=== PATIENT | female | born 2000 | race Caucasian/White ===

== ENCOUNTER 2025-05-31 17:12 | Emergency (ER) | payer MEDICAID, SELFPAY ==
[2025-05-31 17:13] VITALS: BP 114/81; PULSE 85; RESP 16; TEMP 36.8; O2SAT 99; BMI 18.9
--- NOTE | 2025-05-31 18:59 | EX.ED.DYSGE1 ---
HPI History of Present Illness Chief Complaint: Cold Sx Detail of Chief Complaint: Cold symptoms Informant: patient Narrative Narrative: Patient presents with cold symptoms that started 3 days ago. She complains of bodyaches as well as cough and congestion. She thinks that she might have a sinus infection. There was 1 sick contact at work but was better after a day or 2. Patient coughing up some yellow phlegm at times. No fever. No sore throat. Denies headache. PFSH PFSH Home Medications ?Medication ?Instructions ?Recorded ?Last Taken ?Type benzonatate 200 mg capsule 200 mg PO TID PRN cough #14 caps 05/31/25 Unknown Rx Allergy/AdvReac Type Severity Reaction Status Date / Time No Known Allergies Allergy Verified 05/31/25 17:15 Social History Smoking Status: Never smoker ROS ROS ED Review of Systems ROS Unobtainable: other Constitutional Constitutional ED: Reports lethargy; Denies chills, fever(s), sweats or weight loss Eyes Eyes: Denies blurry vision, change in vision or diplopia ENT ENT ED: Denies rhinorrhea or sore throat Cardiovascular Cardiovascular: Denies chest pain, orthopnea or racing heartbeat Respiratory/Chest Respiratory/Chest: Reports cough; Denies dyspnea, dyspnea on exertion, orthopnea or sputum Gastrointestinal Gastrointestinal: Denies abdominal pain, diarrhea, nausea or vomiting Genitourinary Genitourinary ED: Denies dysuria, hematuria or urinary frequency Musculoskeletal Musculoskeletal: Reports myalgias; Denies arthralgias, back pain or neck pain Integumentary Denies abscess, Abrasions or rash Neurologic Neurologic: Denies headache(s) or weakness Psychiatric Psychiatric: Denies anxiety, depression or suicidal thoughts Endocrine Endocrinology: Denies polydipsia, polyphagia or polyuria Hematologic/Lymphatic Hematologic/Lymphatic: Denies easy bleeding, easy bruising or lymphadenopathy Allergic/Immunologic Allergic/Immunologic ED: Denies mouth swelling, tongue swelling or urticaria EXAM Physical Exam Const Vital Signs: 05/31/25 17:13 05/31/25 17:13 Temperature 98.2 F Temperature Source Oral Pulse Rate 85 Respiratory Rate 16 Respiratory Effort Normal Non-Labored Respiratory Pattern Normal Blood Pressure 114/81 H Blood Pressure Mean 92 Pulse Ox 99 Oxygen Delivery Method Room Air Positive well nourished and well developed General Appearance ED: well developed and NAD HEENT Reports TM's clear and moist mucous membranes HEENT Narrative: No tenderness over the sinuses maxillary or frontal. Patient does have some nasal congestion with slightly edematous turbinates but no significant purulent discharge. Pharynx not erythematous. Uvula midline. No trismus. No anterior or posterior cervical lymphadenopathy. normocephalic and atraumatic; Negative for trauma or tenderness Tympanic Membrane ED: Yes TM's clear Eyes PERRL and EOMs intact bilaterally General Eye ED: Negative for pale conjunctiva or scleral icterus Neck no lymphadenopathy, supple and no JVD General: Negative for tenderness Chest Wall inspection of chest normal and palpation of chest normal Chest: Negative for tenderness Resp normal respiratory effort and clear to auscultation bilaterally Effort and Inspection: Negative for respiratory distress or pain with movement Auscultation: Negative for rhonchi, wheezes or diminished lung sounds Cardio regular rate, regular rhythm, S1 normal heart sound, S2 normal heart sound and no murmurs Peripheral Pulses: pulses 2+ throughout GI normal to inspection, nondistended, normoactive bowel sounds, soft to palpation, non-tender, non-distended and no masses Back/Spine no CVA tenderness and no thoracic nor lumbar tenderness Extremity normal to inspection General Extremety ED: Negative for edema General Extremity: Negative for edema Neuro oriented x3, CN's II-XII intact bilaterally, no sensory deficits noted and gait normal Sensorium / Orientation: awake, alert, oriented to person, oriented to place and oriented to time Motor Exam: strength 5/5 throughout and strength abnormal Psych mental status grossly normal Skin no rashes or lesions noted and no wounds MDM MDM MDM Narrative Medical decision making narrative: Patient presents with URI symptoms. I do not feel she has a sinus infection. I do not feel antibiotics are indicated and I discussed this with her. I suspect likely a viral upper respiratory infection. Will treat her symptomatically. Will refer to primary care physician for follow-up within the next 5 to 7 days. Discharge Plan Triage Chief Complaint: Cold Sx ED Provider: Alexy Prater Dx/Rx/DC Orders Clinical Impression: Viral URI Instructions: ED URI, Viral, No Abx (Adult) Prescriptions: New benzonatate 200 mg capsule 200 mg PO TID PRN (Reason: cough) Qty: 14 0RF Referrals: Junior Howard MD [Med Staff - Active Staff] - 5-7 Days Activity Restrictions/Additional Instructions: You may take Mucinex which is [id number] for congestion. Print Language: Georgian Disposition Disposition: Home, Self Care
[2025-05-31 19:06] VITALS: BP 114/81; PULSE 85; RESP 16; TEMP 36.8; O2SAT 99
== END 2025-05-31 19:11 | disposition home or self-care (01) ==
LOC: ED 19:11
PROVIDERS: Emergency Provider Emergency Medicine; Visit Provider Emergency Medicine
DX: J06.9 Acute upper respiratory infection, unspecified (principal)
CPT/HCPCS: 99282

== ENCOUNTER 2025-07-04 18:16 | Emergency (ER) | payer MEDICAID, SELFPAY ==
[2025-07-04 18:17] VITALS: BP 109/73; PULSE 72; RESP 16; TEMP 36.9; O2SAT 100; BMI 20.9
[2025-07-04] MEDS: 0.9% Normal Saline (1000mL) 1,000 ML 999 ML IV (18:40)
--- NOTE | 2025-07-04 18:42 | EDS_ITS ---
HPI HPI - GI History of Present Illness Chief Complaint: Nausea/Vomiting Informant: patient Narrative Narrative: Patient is a 25-year-old female with no significant PMHx presenting with persistent emesis and newly discovered . - Reports positive test on Thursday (3 days ago), due to missed period. - Since then, has experienced persistent emesis, worsening today to approximately every 10 minutes. - Emesis described as dark brownish; denies hematemesis or melena/BRBPR. - Associated with abdominal tightness, onset concurrent with emesis. No lower abd pain. - LMP: 05/19-05/21. - Denies vaginal bleeding, discharge, fever, syncope, diarrhea, or dysuria. - Primigravida. PFSH PFSH Medical History no medical history no medical history Home Medications ?Medication ?Instructions ?Recorded ?Last Taken ?Type benzonatate 200 mg capsule 200 mg PO TID PRN cough #14 caps 05/31/25 Unknown Rx ondansetron 8 mg disintegrating 8 mg PO Q8H PRN nausea and 07/04/25 Unknown Rx tablet vomiting #20 tabs Allergy/AdvReac Type Severity Reaction Status Date / Time No Known Allergies Allergy Verified 07/04/25 18:19 Social History Smoking Status: Current every day smoker tobacco type: e-cigarettes ROS ROS ED Constitutional Constitutional ED: Denies chills or fever(s) Eyes Eyes: Denies change in vision or diplopia ENT ENT ED: Denies rhinorrhea or sore throat Cardiovascular Cardiovascular: Denies chest pain or palpitations Respiratory/Chest Respiratory/Chest: Denies cough or dyspnea Gastrointestinal Gastrointestinal: Reports abdominal pain, nausea and vomiting; Denies diarrhea, hematemesis, hematochezia or melena Genitourinary Genitourinary ED: Denies dysuria or hematuria Musculoskeletal Musculoskeletal: Denies back pain or neck pain Integumentary Denies abscess or rash Neurologic Neurologic: Denies headache(s), paresthesias or weakness Psychiatric Psychiatric: Denies suicidal thoughts EXAM Physical Exam Const Vital Signs: 07/04/25 18:17 Temperature 98.4 F Temperature Source Oral Pulse Rate 72 Respiratory Rate 16 Blood Pressure 109/73 Blood Pressure Mean 85 Pulse Ox 100 Oxygen Delivery Method Room Air Positive well nourished and well developed General Appearance ED: well developed and NAD HEENT Reports moist mucous membranes normocephalic and atraumatic Eyes PERRL and EOMs intact bilaterally Neck full ROM and supple Resp normal respiratory effort and clear to auscultation bilaterally Cardio regular rate, regular rhythm and no murmurs GI non-distended GI Narrative: Mild upper abdominal tenderness no guarding or rebound no lower abdominal tenderness. Auscultation: normoactive bowel sounds Palpation: soft Back/Spine no CVA tenderness General Back: other FROM Extremity normal to inspection General Extremety ED: Negative for edema, pulses abnormal or tenderness General Extremity: Negative for edema or pulses abnormal Neuro oriented x3, CN's II-XII intact bilaterally and no sensory deficits noted Sensorium / Orientation: awake and alert Motor Exam: strength 5/5 throughout Psych Mood & Affect: anxious Skin no rashes or lesions noted and no wounds MDM MDM MDM Narrative Medical decision making narrative: This presentation is most consistent with hyperemesis gravidarum, although it is certainly possible that she also has a viral illness. My suspicion for an ectopic or an acute ovarian process is extremely low. We confirmed a positive test and performed a bedside ultrasound showing a gestational sac. Its diameter is consistent with a 6-week, 2-day , which aligns with her dates. I was not able to find heart tones; however, the pole, which is noted, is very small. We cannot entirely rule out the possibility of a missed AB, but at this time the patient has no lateralizing pelvic pain, tenderness suggestive of an acute process, or vaginal bleeding. Therefore, I do not believe she requires an emergent transvaginal ultrasound tonight, for which we would have to call ultrasound in. Her quantitative HCG is 47,000. She has mild leukocytosis at 16.4, which is not specific. The rest of her testing is unremarkable, and she has no urinary symptoms suggestive of cystitis. After IV fluids and Zofran, she is doing much better and tolerating oral fluids. She does not have any pain and reports feeling much improved. She is already taking gummies. I will refer her to the OB elementary education teacher, Dr. Gu, and prescribe Zofran as needed. Lab Data Attestation: I reviewed the patient's lab results. Labs: Laboratory Results - last 24 hr 07/04/25 18:30 WBC 16.4 H RBC 4.81 Hgb 14.7 Hct 41.8 MCV 86.9 MCH 30.6 MCHC 35.2 RDW Std Deviation 39.4 RDW Coeff of [place] 12.4 Plt Count 352 MPV 12.0 Immature Gran % (Auto) 0.400 Neut % (Auto) 85.2 H Lymph % (Auto) 11.2 L [place] % (Auto) 2.9 Eos % (Auto) 0.0 Baso % (Auto) 0.3 Absolute Neuts (auto) 14.0 H Absolute Lymphs (auto) 1.84 Nucleated RBC % 0 Sodium 140 Potassium 3.6 Chloride 99 Carbon Dioxide 21.7 Anion Gap 19 H BUN 8 Creatinine 0.77 Estim Creat Clear Calc 96.45 Est GFR (MDRD) Non-Af 110 BUN/Creatinine Ratio 10.9 Glucose 110 H Calcium 10.5 HCG, Quant 63044 H Discharge Plan Triage Chief Complaint: Nausea/Vomiting ED Provider: Elbert Watkins Dx/Rx/DC Orders Clinical Impression: Vomiting affecting , antepartum, 6 weeks gestation of Instructions: : Weeks 6 to 10, Hyperemesis Gravidarum Prescriptions: New ondansetron 8 mg tablet,disintegrating 8 mg PO Q8H PRN (Reason: nausea and vomiting) Qty: 20 0RF No Action benzonatate 200 mg capsule 200 mg PO TID PRN (Reason: cough) Qty: 14 0RF Primary Care Provider: Care Physician,No Primary Referrals: Hamilton Gu MD [Med Staff - Active Staff, Obstetrics-Gynecology (OBGYN)] - As soon as possible Activity Restrictions/Additional Instructions: - Diagnosis: hyperemesis gravidarum (severe -related nausea and vomiting). - Sip small amounts of clear liquids throughout the day to stay hydrated. - Take ondansetron (Zofran) as needed for nausea; your prescription has been sent to the pharmacy. - Continue your vitamin gummies daily. - Follow up with OB elementary education teacher, Dr. Gu, for ongoing care. Print Language: Martiniquais Disposition Disposition: Home, Self Care
[2025-07-04 19:21] LABS: Hematocrit 41.8 % (37-47); Hemoglobin 14.7 g/dL (12.0-15.0); Immature Granulocytes Count 0.060 X10^3/uL (0.0-0.0); Mean Corp Hgb Conc 35.2 g/dL (32-36); Mean Corpuscular Volume 86.9 fL (81-99); Mean Platelet Vol. 12.0 fl (6.2-12.0); NRBC Flagged by Analyzer 0 % (0-5); Platelet Count 352 K/mm3 (150-450); RBC Distribution Width CV 12.4 % (11.6-14.6); RBC Distribution Width SD 39.4 fl (35.1-43.9); Red Blood Count 4.81 M/mm3 (4.2-5.4); White Blood Count 16.4 K/mm3 (4.4-11.0)
[2025-07-04 19:52] LABS: Anion Gap 19 (5-15); BUN 8 mg/dL (4-19); BUN/Creat Ratio 10.9 RATIO (10-20); Calcium,Total 10.5 mg/dL (7.6-11.0); Carbon Dioxide 21.7 mmol/L (21.0-32.0); Chloride 99 mmol/L (98-108); Estimated Creatinine Clearance 96.45 ml/min (50-250); Glucose 110 mg/dL (70-99); Potassium 3.6 mmol/L (3.3-5.1)
[2025-07-04 20:06] LABS: hCG Titer Quant., Serum 47610 mIU/mL (<9 non-preg)
[2025-07-04 20:16] VITALS: BP 103/64; PULSE 82; RESP 16; TEMP 36.9; O2SAT 100
== END 2025-07-04 20:22 | disposition home or self-care (01) ==
PROVIDERS: Emergency Provider Emergency Medicine; Visit Provider Emergency Medicine
DX: O21.9 Vomiting of pregnancy, unspecified (principal); Z3A.01 Less than 8 weeks gestation of pregnancy; F17.290 Nicotine dependence, other tobacco product, uncomplicated; O99.331 Smoking (tobacco) complicating pregnancy, first trimester
CPT/HCPCS: 80048; 84702; 85025; 96361; 96374; 99284; A4216; J2405

== ENCOUNTER 2025-07-22 20:50 | Emergency (ER) | payer MEDICAID, SELFPAY ==
[2025-07-22 20:50] VITALS: BP 121/87; PULSE 102; RESP 20; TEMP 36.3; O2SAT 100; BMI 20.7
--- NOTE | 2025-07-22 21:07 | US_ITS ---
PROCEDURE: US/Transvaginal w/Preg US
--- NOTE | 2025-07-22 21:07 | EX.ED.DYSGE1 ---
HPI History of Present Illness Chief Complaint: Nausea/Vomiting Detail of Chief Complaint: Nausea and vomiting Informant: patient Narrative Narrative: Patient presents with nausea and vomiting for several weeks. She was seen in the emergency department for same a few weeks ago. At times is able to get by with some Zofran. She has been vomiting frequently today. Has not had a bowel movement in about 8 days. She believes she is about 9 weeks . She is . She has not established with an COMMISSIONING SPECIALIST. She moved here from [place] recently and is trying to figure out her Medicaid situation. She denies urinary symptoms. She denies diarrhea. She denies blood in her stool. PFSH PFS Medical History no medical history Home Medications ?Medication ?Instructions ?Recorded ?Last Taken ?Type benzonatate 200 mg capsule 200 mg PO TID PRN cough #14 caps 05/31/25 Unknown Rx ondansetron 8 mg disintegrating 8 mg PO Q8H PRN nausea and 07/04/25 Unknown Rx tablet vomiting #20 tabs ondansetron 4 mg disintegrating 8 mg (2 x 4 mg) PO Q8H PRN PRN 07/23/25 Unknown Rx tablet Nausea #20 tabs Allergy/AdvReac Type Severity Reaction Status Date / Time No Known Allergies Allergy Verified 07/22/25 20:54 Social History Smoking Status: Former smoker ROS ROS ED Review of Systems ROS Unobtainable: other Constitutional Constitutional ED: Reports lethargy; Denies chills, fever(s), sweats or weight loss Eyes Eyes: Denies blurry vision, change in vision or diplopia ENT ENT ED: Denies rhinorrhea or sore throat Cardiovascular Cardiovascular: Denies chest pain, orthopnea or racing heartbeat Respiratory/Chest Respiratory/Chest: Denies cough, dyspnea, dyspnea on exertion, orthopnea or sputum Gastrointestinal Gastrointestinal: Reports abdominal pain, nausea and vomiting; Denies diarrhea Genitourinary Genitourinary ED: Denies dysuria, hematuria or urinary frequency Musculoskeletal Musculoskeletal: Denies arthralgias, back pain, myalgias or neck pain Integumentary Denies abscess, Abrasions or rash Neurologic Neurologic: Denies headache(s) or weakness Psychiatric Psychiatric: Denies anxiety, depression or suicidal thoughts Endocrine Endocrinology: Denies polydipsia, polyphagia or polyuria Hematologic/Lymphatic Hematologic/Lymphatic: Denies easy bleeding, easy bruising or lymphadenopathy Allergic/Immunologic Allergic/Immunologic ED: Denies mouth swelling, tongue swelling or urticaria EXAM Physical Exam Const Vital Signs: 07/22/25 20:50 07/22/25 22:50 Temperature 97.3 F L Temperature Source Temporal Pulse Rate 102 H 66 Respiratory Rate 20 H 16 Blood Pressure 121/87 H 102/71 Blood Pressure Mean 98 81 Pulse Ox 100 69 Oxygen Delivery Method Room Air Positive well nourished and well developed General Appearance ED: well developed and NAD HEENT Reports TM's clear and moist mucous membranes normocephalic and atraumatic; Negative for trauma or tenderness Tympanic Membrane ED: Yes TM's clear Eyes PERRL and EOMs intact bilaterally General Eye ED: Negative for pale conjunctiva or scleral icterus Neck no lymphadenopathy, supple and no JVD General: Negative for tenderness Chest Wall inspection of chest normal and palpation of chest normal Chest: Negative for tenderness Resp normal respiratory effort and clear to auscultation bilaterally Effort and Inspection: Negative for respiratory distress or pain with movement Auscultation: Negative for rhonchi, wheezes or diminished lung sounds Cardio regular rate, regular rhythm, S1 normal heart sound, S2 normal heart sound and no murmurs Peripheral Pulses: pulses 2+ throughout GI normal to inspection, nondistended, normoactive bowel sounds, soft to palpation, non-tender, non-distended and no masses Back/Spine no CVA tenderness and no thoracic nor lumbar tenderness Extremity normal to inspection General Extremety ED: Negative for edema General Extremity: Negative for edema Neuro oriented x3, CN's II-XII intact bilaterally, no sensory deficits noted and gait normal Sensorium / Orientation: awake, alert, oriented to person, oriented to place and oriented to time Motor Exam: strength 5/5 throughout and strength abnormal Psych mental status grossly normal Skin no rashes or lesions noted and no wounds MDM MDM MDM Narrative Medical decision making narrative: Patient presents with vomiting. Cannot keep her Zofran down because she has thrown up so frequently. Seen in the emergency department 2 weeks ago for same complaint. This is her first . Abdominal exam is benign. IV line established. She was given a liter [place] fluid bolus and given Zofran IV. She was then ordered a second liter. CBC with differential obtained showed an elevated white count of 19.9 which I suspect is likely reactive. Hemoglobin is 13.5 and platelet count of 331. Chemistries unremarkable. Urinalysis unremarkable for infection. I did order a pelvic ultrasound to evaluate further. During her visit 2 weeks ago the ED physician did the ultrasound and did not get a formal ultrasound at that time. Case patient will be turned over to evening physician awaiting ultrasound results and final disposition. I suspect likely hyperemesis gravidarum. Lab Data Attestation: I reviewed the patient's lab results. Labs: Laboratory Results - last 24 hr 07/22/25 07/22/25 21:30 21:49 WBC 19.9 H RBC 4.42 Hgb 13.5 Hct 37.6 MCV 85.1 MCH 30.5 MCHC 35.9 RDW Std Deviation 37.6 RDW Coeff of Oscar 12.2 Plt Count 331 MPV 12.1 H Immature Gran % (Auto) 0.600 Neut % (Auto) 85.8 H Lymph % (Auto) 9.1 L [place] % (Auto) 4.1 Eos % (Auto) 0.1 Baso % (Auto) 0.3 Absolute Neuts (auto) 17.1 H Absolute Lymphs (auto) 1.81 Nucleated RBC % 0 Sodium 135 Potassium 3.6 Chloride 100 Carbon Dioxide 17.8 L Anion Gap 18 H BUN 7 Creatinine 0.55 L Estim Creat Clear Calc 134.92 Est GFR (MDRD) Non-Af 131 BUN/Creatinine Ratio 12.3 Glucose 99 Calcium 10.2 Urine Color Yellow Urine Clarity Clear Urine pH 5.0 Ur Specific [place] 1.030 Urine Protein 30 H Urine Glucose (UA) Normal Urine Ketones 150 A* Urine Occult Blood 10 H Urine Nitrite Negative Urine Bilirubin Negative Urine Urobilinogen 4 H Ur Leukocyte Esterase 100 H Urine RBC 0-5 SEEN Urine WBC 0-5 SEEN Ur Squamous Epith Cells 25-50 SEEN Urine Bacteria 3+ Urine Mucus 1+ Discharge Plan Triage Chief Complaint: Nausea/Vomiting ED Provider: Alexy Prater Dx/Rx/DC Orders Clinical Impression: Hyperemesis gravidarum Instructions: ED Hyperemesis Gravidarum Prescriptions: New ondansetron 4 mg tablet,disintegrating 8 mg PO Q8H PRN PRN (Reason: Nausea) Qty: 20 0RF No Action benzonatate 200 mg capsule 200 mg PO TID PRN (Reason: cough) Qty: 14 0RF ondansetron 8 mg tablet,disintegrating 8 mg PO Q8H PRN (Reason: nausea and vomiting) Qty: 20 0RF Primary Care Provider: Care Physician,No Primary Referrals: Katia Echavarria MD [Med Staff - Active Staff, Obstetrics-Gynecology (OBGYN)] - 3-5 Days Care Physician,No Primary [Primary Care Provider, Medical] Print Language: Slovak
[2025-07-22] MEDS: 0.9% Normal Saline (1000mL) 1,000 ML 1000 ML IV (21:29)
[2025-07-22 21:39] LABS: Hematocrit 37.6 % (37-47); Hemoglobin 13.5 g/dL (12.0-15.0); Immature Granulocytes Count 0.120 X10^3/uL (0.0-0.0); Mean Corp Hgb Conc 35.9 g/dL (32-36); Mean Corpuscular Volume 85.1 fL (81-99); Mean Platelet Vol. 12.1 fl (6.2-12.0); NRBC Flagged by Analyzer 0 % (0-5); Platelet Count 331 K/mm3 (150-450); RBC Distribution Width CV 12.2 % (11.6-14.6); RBC Distribution Width SD 37.6 fl (35.1-43.9); Red Blood Count 4.42 M/mm3 (4.2-5.4); White Blood Count 19.9 K/mm3 (4.4-11.0)
[2025-07-22 21:58] LABS: Anion Gap 18 (5-15); BUN 7 mg/dL (4-19); BUN/Creat Ratio 12.3 RATIO (10-20); Calcium,Total 10.2 mg/dL (7.6-11.0); Carbon Dioxide 17.8 mmol/L (21.0-32.0); Chloride 100 mmol/L (98-108); Estimated Creatinine Clearance 134.92 ml/min (50-250); Glucose 99 mg/dL (70-99); Potassium 3.6 mmol/L (3.3-5.1)
[2025-07-22 22:00] LABS: Glucose, Dipstick Normal (Normal); Leukocyte Esterase-Dipstick 100 /ul (Negative); Nitrite-Dipstick Negative (Negative); Occult Blood-Urine 10 /ul (Negative); Protein-Dipstick 30 mg/dl (Negative); Specific Gravity, Urine 1.030 (1.002-1.030); Urine Bilirubin Dipstick Negative (Negative)
[2025-07-22 22:01] LABS: Color, Urine Yellow (Yellow); Ketone-Dipstick 150 mg/dl (Negative)
[2025-07-22 22:09] LABS: Mucous, Urine 1+ /hpf (<or=2+); Squamous Epithelial Cells - UA 25-50 SEEN /hpf (5-10)
[2025-07-22 22:11] LABS: Red Blood Cells-Urine 0-5 SEEN /hpf (0-5)
[2025-07-22 22:50] VITALS: BP 102/71; PULSE 66; RESP 16; O2SAT 69
[2025-07-22] MEDS: 0.9% Normal Saline (1000mL) 1,000 ML 999 ML IV (22:50)
[2025-07-23] VITALS: BP 104/62; PULSE 71; RESP 18; O2SAT 100
[2025-07-23 00:31] VITALS: BP 104/62; PULSE 78; RESP 16; TEMP 36.3; O2SAT 100
== END 2025-07-23 00:34 | disposition home or self-care (01) ==
PROVIDERS: Emergency Provider Emergency Medicine; Visit Provider Emergency Medicine
DX: O21.0 Mild hyperemesis gravidarum (principal); Z87.891 Personal history of nicotine dependence; Z3A.09 9 weeks gestation of pregnancy; E86.0 Dehydration; O99.281 Endocrine, nutritional and metabolic diseases complicating pregnancy, first trimester
CPT/HCPCS: 76817; 80048; 81001; 85025; 96361; 96374; 99284; A4216; J2405

== ENCOUNTER 2025-08-31 18:02 | Emergency (ER) | payer MEDICAID, SELFPAY ==
[2025-08-31 18:03] VITALS: BP 93/57; PULSE 78; RESP 16; TEMP 36.6; O2SAT 100; BMI 21.1
--- OUTSIDE RECORDS SUMMARY | 2025-08-31 19:51 | XMS RPT_ITS | CCD ---
Author Organization [facility] Care Team Providers Care Lens Molding Equipment Operator Name Role Phone Moi SHEPHERD, Dr. Tracey Emergency Provider Care Physician, No Primary Primary Care Provider Unavailable Dr. Alexy Prater DO Attending Physician Dr. Alexy Prater DO Emergency Department Physici an Care Physician, No Primary Primary Care Physicia n Luis Watkins MD, Dr. Boswell Attending Physician Roland REICH, Dr. Boswell Emergency Department Phys ician Alexy Prater Attending Unavailable Care Physician, No Primary Primary Care Unava ilable Elbert Watkins Attending Unavailable Care Physician, No Primary Primary Care Unava ilable Alexy Prater Attending Unavailable Care Physician, No Primary Primary Care Unava ilable Medications Current Medications Medication Drug Class(es) Dates Sig (Normalized) Sig (Original) benzonatate 200 mg oral capsule (2 sources) Non-narcotic Antitussive Start: 05-31-2025 take 1 capsule by mouth three times daily as needed for cough ondansetron 8 mg disintegrating oral tablet (1 source) Serotonin-3 Receptor Antagonist Start: 07-04-2025 take 1 tablet by mouth every eight hours as needed for nausea and vomiting Problems Problem Classification Problem Date Documented Da te Episodic/Chronic Nausea and vomiting (1 source) Nausea with vomiting, unspecified; Translations: [Nausea with vomiting, unspecified] Onset: 08-02-2025 Episodic Other complications of (1 source) Vomiting of ; Translations: [Vomiting of , unspecified] 07-12-2025 Episodic Other complications of (1 source) Vomiting of , unspecified; Translations: [Vomiting of , unspecified] Onset: 07-11-2025 Episodic Other upper respiratory infections (2 sources) Viral upper respiratory tract infection; Translations: [Acute upper respiratory infection, unspecified] 05-31-2025 Episodic Residual codes; unclassified (1 source) Gestation period, 6 weeks; Translations: [Less than 8 weeks gestation of ] 07-12-2025 Episodic Unclassified (1 source) Cough, unspecified; Translations: [Cough, unspecified] Onset: 06-05-2025 Results Test Name Value Interpretation Reference Range Facility Basic Metabolic Profile (BMP )on 07-22-2025 BUN/CRE 12.3 RATIO Normal 10-20 [facility] Comment on above: Performed By: #### L 500.2500, L100.0100 #### [facility] [address] [place], [address] Calcium [Mass/Vol] 10.2 mg/dL Normal 7.6-11.0 [facility] Comment on above: Performed By: #### L 500.2500, L100.0100 #### [facility] [address] [place], [address] Chloride [Moles/Vol] 100 mmol/L Normal 98-108 [facility] Comment on above: Performed By: #### L 500.2500, L100.0100 #### [facility] [address] [place], [address] CO2 [Moles/Vol] 17.8 mmol/L Low 21.0-32.0 [facility] Comment on above: Performed By: #### L 500.2500, L100.0100 #### [facility] [address] [place], [address] Creatinine [Mass/Vol] 0.55 mg/dL Low 0.70-1.20 [facility] Comment on above: Performed By: #### L 500.2500, L100.0100 #### [facility] [address] [place], [address] ECRCL 134.92 ml/min Normal 50-250 [facility] Comment on above: Performed By: #### L 500.2500, L100.0100 #### [facility] [address] [place], [address] GAP 18 High 5-15 [facility] Comment on above: Performed By: #### L 500.2500, L100.0100 #### [facility] [address] [place], [address] GFR/1.73 sq M.predicted among non-blacks MDRD (S/P/Bld) [Vol rate/Area] 131 mL/min/{1.73_m2} Normal >60 [facility] Comment on above: Result Comment: mL/m in/1.73m2 CKD-EPI Creatinine Equation (2020) Performed By: #### L 500.2500, L100.0100 #### [facility] [address] [place], [address] Glucose [Mass/Vol] 99 mg/dL Normal 70-99 [facility] Comment on above: Performed By: #### L 500.2500, L100.0100 #### [facility] [address] [place], [address] Potassium [Moles/Vol] 3.6 mmol/L Normal 3.3-5.1 [facility] Comment on above: Performed By: #### L 500.2500, L100.0100 #### [facility] [address] [place], [address] Sodium [Moles/Vol] 135 mmol/L Normal 133-145 [facility] Comment on above: Performed By: #### L 500.2500, L100.0100 #### [facility] [address] [place], [address] Urea nitrogen [Mass/Vol] 7 mg/dL Normal 4-19 [facility] Comment on above: Performed By: #### L 500.2500, L100.0100 #### [facility] [address] [place], [address] CBC W/Diff, Automatedon 11-0 -2024 Absolute Lymph 1.81 X10 3/uL Normal 0.83-4.51 [facility] Comment on above: Performed By: #### L 500.2500, L100.0100 #### [facility] [address] [place], [address] Absolute Neut 17.1 X10 3/uL High 2.0-7.7 [facility] Comment on above: Performed By: #### L 500.2500, L100.0100 #### [facility] [address] [place], [address] Basophils/100 WBC (Bld) 0.3 % Normal 0-1 [facility] Comment on above: Performed By: #### L 500.2500, L100.0100 #### [facility] [address] [place], [address] Eosinophils/100 WBC (Bld) 0.1 % Normal 0-5 [facility] Comment on above: Performed By: #### L 500.2500, L100.0100 #### [facility] [address] [place], [address] Erythrocyte distribution width (RBC) [Ratio] 12.2 % Normal 11.6-14.6 [facility] Comment on above: Performed By: #### L 500.2500, L100.0100 #### [facility] [address] [place], [address] Hematocrit (Bld) [Volume fraction] 37.6 % Normal 37-47 [facility] Comment on above: Performed By: #### L 500.2500, L100.0100 #### [facility] [address] [place], [address] Hemoglobin (Bld) [Mass/Vol] 13.5 g/dL Normal 12.0-15.0 [facility] Comment on above: Performed By: #### L 500.2500, L100.0100 #### [facility] [address] [place], [address] IG% 0.600 Normal 0.0-0.9 [facility] Comment on above: Result Comment: IG% - Immature Granulocytes (promyelocytes, myelocytes and metamyelocytes) > 1% indicates that a LEFT SHIFT is Present. Performed By: #### L 500.2500, L100.0100 #### [facility] [address] [place], [address] Lymphocytes/100 WBC (Bld) 9.1 % Low 19-41 [facility] Comment on above: Performed By: #### L 500.2500, L100.0100 #### [facility] [address] [place], [address] MCH (RBC) [Entitic mass] 30.5 pg Normal 27.0-32.0 [facility] Comment on above: Performed By: #### L 500.2500, L100.0100 #### [facility] [address] [place], [address] MCHC (RBC) [Mass/Vol] 35.9 g/dL Normal 32-36 [facility] Comment on above: Performed By: #### L 500.2500, L100.0100 #### [facility] [address] [place], [address] MCV (RBC) [Entitic vol] 85.1 fL Normal 81-99 [facility] Comment on above: Performed By: #### L 500.2500, L100.0100 #### [facility] [address] [place], [address] Monocytes/100 WBC (Bld) 4.1 % Normal 0-10 [facility] Comment on above: Performed By: #### L 500.2500, L100.0100 #### [facility] [address] [place], [address] Neutrophils/100 WBC (Bld) 85.8 % High 47-70 [facility] Comment on above: Performed By: #### L 500.2500, L100.0100 #### [facility] [address] [place], [address] Nucleated RBC (Bld) [#/Vol] 0 10*3/uL Normal 0-5 [facility] Comment on above: Performed By: #### L 500.2500, L100.0100 #### [facility] [address] [place], [address] Platelet mean volume (Bld) [Entitic vol] 12.1 fL High 6.2-12.0 [facility] Comment on above: Performed By: #### L 500.2500, L100.0100 #### [facility] [address] [place], [address] Platelets (Bld) [#/Vol] 331 10*3/uL Normal 150-450 [facility] Comment on above: Performed By: #### L 500.2500, L100.0100 #### [facility] [address] [place], [address] RBC (Bld) [#/Vol] 4.42 10*6/uL Normal 4.2-5.4 [facility] Comment on above: Performed By: #### L 500.2500, L100.0100 #### [facility] [address] [place], [address] RDW SD 37.6 fl Normal 35.1-43.9 [facility] Comment on above: Performed By: #### L 500.2500, L100.0100 #### [facility] [address] [place], [address] WBC (Bld) [#/Vol] 19.9 10*3/uL High 4.4-11.0 [facility] Comment on above: Performed By: #### L 500.2500, L100.0100 #### [facility] [address] [place], [address] Emergency Department Summary on 07-22-2025 Emergency Department Summary [facility] Medical Records Department [address] [place] [address] Emergency Department Summary 07/22/25 MR#: [id number] Acct: [id number] Name: NOEMI CINTRON Rep #: [id number] : 2000 25 From: Alexy Prater DO PCP: Care Physician,No Primary Status:REG ER Location: ED ADDENDUM by Pieter Harper DO on 07/23/25 at 0029 The patient was signed out to me while awaiting the official report of her ultrasound. Ultrasound revealed a single IUP at 9 weeks and 1 day with normal heartbeat of 176 bpm. After receiving 2 L of IV fluid and IV Zofran the patient's had improvement of her nausea and vomiting and her vitals are stabilized. Therefore at this time with labs showing dehydration but no signs of ZAHIDA or clinically significant electrolyte abnormality and ultrasound confirming single IUP with normal heartbeat there is no need for further intervention and she is otherwise safe for discharge. 07/23/25 0029 Cosigner Signature (if applicable): cc: No Primary Care Physician * Signed HPI History of Present Illness Chief Complaint: Nausea/Vomiting Detail of Chief Complaint: Nausea and vomiting Informant: patient Narrative Narrative: Patient presents with nausea and vomiting for several weeks. She was seen in the emergency department for same a few weeks ago. At times is able to get by with some Zofran. She has been vomiting frequently today. Has not had a bowel movement in about 8 days. She believes she is about 9 weeks . She is . She has not established with an KINESIOLOGY PROFESSOR. She moved here from [place] recently and is trying to figure out her Medicaid situation. She denies urinary symptoms. She denies diarrhea. She denies blood in her stool. PFSH PFSH Medical History no medical history Home Medications ???Medication ???Instructions ???Recorded ???Last Taken ???Type benzonatate 200 mg capsule 200 mg PO TID PRN cough #14 caps 0 05/31/25 Unknown Rx ondansetron 8 mg disintegrating 8 mg PO Q8H PRN nausea and 5 Unknown Rx tablet vomiting #20 tabs ondansetron 4 mg disintegrating 8 mg (2 x 4 mg) PO Q8H PRN PRN 11/15 Unknown Rx tablet Nausea #20 tabs Allergy/AdvReac Type Severity Reaction Status Date / Time No Known Allergies Allergy Verified 07/22/25 20:54 Social History Smoking Status: Former smoker ROS ROS ED Review of Systems ROS Unobtainable: other Constitutional Constitutional ED: Reports lethargy; Denies chills, fever(s), sweats or weight loss Eyes Eyes: Denies blurry vision, change in vision or diplopia ENT ENT ED: Denies rhinorrhea or sore throat Cardiovascular Cardiovascular: Denies chest pain, orthopnea or racing heartbeat Respiratory/Chest Respiratory/Chest: Denies cough, dyspnea, dyspnea on exertion, orthopnea or sputum Gastrointestinal Gastrointestinal: Reports abdominal pain, nausea and vomiting; Denies diarrhea Genitourinary Genitourinary ED: Denies dysuria, hematuria or urinary frequency Musculoskeletal Musculoskeletal: Denies arthralgias, back pain, myalgias or neck pain Integumentary Denies abscess, Abrasions or rash Neurologic Neurologic: Denies headache(s) or weakness Psychiatric Psychiatric: Denies anxiety, depression or suicidal thoughts Endocrine Endocrinology: Denies polydipsia, polyphagia or polyuria Hematologic/Lymphat ic Hematologic/Lymphat ic: Denies easy bleeding, easy bruising or lymphadenopathy Allergic/Immunologi c Allergic/Immunologi c ED: Denies mouth swelling, tongue swelling or urticaria EXAM Physical Exam Const Vital Signs: 07/22/25 20:50 07/22/25 22:50 Temperature 97.3 F L Temperature Source Temporal Pulse Rate 102 H 66 Respiratory Rate 20 H 16 Blood Pressure 121/87 H 102/71 Blood Pressure Mean 98 81 Pulse Ox 100 69 Oxygen Delivery Method Room Air Positive well nourished and well developed General Appearance ED: well developed and NAD HEENT Reports TM's clear and moist mucous membranes normocephalic and atraumatic; Negative for trauma or tenderness Tympanic Membrane ED: Yes TM's clear Eyes PERRL and EOMs intact bilaterally General Eye ED: Negative for pale conjunctiva or scleral icterus Neck no lymphadenopathy, supple and no JVD General: Negative for tenderness Chest Wall inspection of chest normal and palpation of chest normal Chest: Negative for tenderness Resp normal respiratory effort and clear to auscultation bilaterally Effort and Inspection: Negative for respiratory distress or pain with movement Auscultation: Negative for rhonchi, wheezes or diminished lung sounds Cardio regular rate, regular rhythm, S1 normal heart sound, S2 normal heart sound and no murmurs Peripheral Pulses: pulses 2+ throughout GI (more content not included)... Normal [facility] Transvaginal w/Preg USon Transvaginal w/Preg US [facility] Imaging Services [address] [place], [place] [address] Transvaginal w/Preg US MR#: [id number] Acct: [id number] Name: NOEMI CINTRON Rep #: [id number] : 2000 F 25 From: James Navarrete MD PCP: Care Physician,No Primary Status: REG ER Study: Transvaginal w/Preg US Date of Exam: 07/22/25 Exam# [id number] Ordering Dr: Alexy Prater DO PROCEDURE: TRANSVAGINAL W/PREG US 07/22/2025 REASON FOR EXAM: , ABDOMINAL PAIN TECHNIQUE: Procedure Code: USTVAGP Modality: US Procedure: TRANSVAGINAL W/PREG US COMPARISON: None FINDINGS: Number of Gestational Sacs: 1 Gestational Sac Shape: Normal Number of Fetuses: 1 Heart Rate: 176 (average) Survey of Visible Anatomic Structures: Grossly unremarkable for gestational age. Nasal Bones: Not visualized Yolk Sac: Present and unremarkable. Placenta: Presently not well-visualized Amniotic Fluid Volume: Subjectively normal for gestational age. Uterine Abnormalities: Maternal uterus is unremarkable. Ovaries / Adnexa: The right ovary measures 3.5 x 2.2 x 2.9 cm for volume of 11.5 mL, and contains a corpus luteum measuring 2.3 cm. The left ovary measures 2.6 x 1.6 x 1.7 cm for volume of 3.9 mL. DIMENSIONS: Parameter Measurement / EGA [place] Rump Length: 2.3 cm/8 weeks 5 days +/-6 days Gestational Sac: 4.0 cm/9 weeks 3 days +/-10 days Yolk Sac: 0.4 cm/N/A ESTIMATED GESTATIONAL AGE: By Ultrasound: 9 weeks 1 day By LMP: 02/23/2026 ESTIMATED DATE OF DELIVERY: By Ultrasound: 9 weeks 1 day By LMP: 02/23/2026 US/Transvaginal w/Preg US IMPRESSION: 1. Single living intrauterine , with estimated gestational age of 9 weeks 1 day by ultrasound measurements. This is concordant with dating by LMP which predicts estimated due date of 02/23/2026. 2. heart rate of 176 beats per minute. Reading Location: [id number] CC: Dr. Alexy Prater, DO; No Primary Care Physician Historical Guide: Signed Normal [facility] Urinalysis, Completeon 07-22 RBC 0-5 SEEN Normal 0-5 [facility] Comment on above: Order Comment: DAYANA CTOR TO SPECIFY Performed By: #### L 400.0001 #### [facility] [address] [place], [place], [address] WBC 0-5 SEEN Normal 0-5 [facility] Comment on above: Order Comment: DAYANA CTOR TO SPECIFY Performed By: #### L 400.0001 #### [facility] [address] [place], [address] BACTERIA 3+ /hpf Normal None Seen [facility] Comment on above: Order Comment: DAYANA CTOR TO SPECIFY Performed By: #### L 400.0001 #### [facility] [address] [place], [address] EPI,SQUAMOUS 25-50 SEEN Normal 5-10 [facility] Comment on above: Order Comment: DAYANA CTOR TO SPECIFY Performed By: #### L 400.0001 #### [facility] [address] [place], [address] Mucus Ql (Urine sed) 1+ /hpf Normal [facility] Comment on above: Order Comment: COLLE CTOR TO SPECIFY Performed By: #### L 400.0001 #### [facility] [address] [place], [address] Absolute lymphocyte countOrd ered By: Elbert Watkins on 07-04-2025 Lymphocytes Auto (Unsp spec) [#/Vol] 1.84 10*3/uL 0.83-4.51 [facility] Absolute neutrophil countOrd ered By: Elberthung Watkins on 07-04-2025 Neutrophils (Bld) [#/Vol] 14.0 10*3/uL High 2.0-7.7 [facility] Anion gap in Serum or Plasma Ordered By: Elbert Watkins on 07-04-2025 Anion gap [Moles/Vol] 19 mmol/L High 5-15 [facility] Automated lymphocyte count a s percentage of total leukocytesOrdered By: Elbert Watkins on 07-04-2025 Lymphocytes/100 WBC Auto (Unsp spec) 11.2 % Low 19-41 [facility] BUN/creatinine ratioOrdered By: Elbert Watkins on 07-04-2025 Urea nitrogen/Creatinine [Mass ratio] 10.9 mg/mg 10- [facility] Basic Metabolic Profile (BMP )on 07-04-2025 BUN/CRE 10.9 RATIO Normal - [facility] Comment on above: Performed By: #### L 100.0100, L700.8000, L500.2500 #### [facility] [address] [place], [address] Calcium [Mass/Vol] 10.5 mg/dL Normal 7.6-11.0 [facility] Comment on above: Performed By: #### L 100.0100, L700.8000, L500.2500 #### [facility] [address] [place], [address] Chloride [Moles/Vol] 99 mmol/L Normal 98-108 [facility] Comment on above: Performed By: #### L 100.0100, L700.8000, L500.2500 #### [facility] [address] [place], [address] CO2 [Moles/Vol] 21.7 mmol/L Normal 21.0-32.0 [facility] Comment on above: Performed By: #### L 100.0100, L700.8000, L500.2500 #### [facility] [address] [place], [address] Creatinine [Mass/Vol] 0.77 mg/dL Normal 0.70-1.20 [facility] Comment on above: Performed By: #### L 100.0100, L700.8000, L500.2500 #### [facility] [address] [place], [address] ECRCL 96.45 ml/min Normal 50-250 [facility] Comment on above: Performed By: #### L 100.0100, L700.8000, L500.2500 #### [facility] [address] [place], [address] GAP 19 High 5-15 [facility] Comment on above: Performed By: #### L 100.0100, L700.8000, L500.2500 #### [facility] [address] [place], [address] GFR/1.73 sq M.predicted among non-blacks MDRD (S/P/Bld) [Vol rate/Area] 110 mL/min/{1.73_m2} Normal >60 [facility] Comment on above: Result Comment: mL/m in/1.73m2 CKD-EPI Creatinine Equation (2020) Performed By: #### L 100.0100, L700.8000, L500.2500 #### [facility] [address] [place], [address] Glucose [Mass/Vol] 110 mg/dL High 70-99 [facility] Comment on above: Performed By: #### L 100.0100, L700.8000, L500.2500 #### [facility] [address] [place], [address] Potassium [Moles/Vol] 3.6 mmol/L Normal 3.3-5.1 [facility] Comment on above: Performed By: #### L 100.0100, L700.8000, L500.2500 #### [facility] [address] [place], [address] Sodium [Moles/Vol] 140 mmol/L Normal 133-145 [facility] Comment on above: Performed By: #### L 100.0100, L700.8000, L500.2500 #### [facility] [address] [place], [address] Urea nitrogen [Mass/Vol] 8 mg/dL Normal 4-19 [facility] Comment on above: Performed By: #### L 100.0100, L700.8000, L500.2500 #### [facility] [address] [place], [address] Basophil percentageOrdered B y: Elbert Roland on 07-04-2025 Basophils/100 WBC (Bld) 0.3 % 0-1 [facility] CBC W/Diff, Automatedon 06-21 Absolute Lymph 1.84 X10 3/uL Normal 0.83-4.51 [facility] Comment on above: Performed By: #### L 100.0100, L700.8000, L500.2500 #### [facility] [address] [place], [address] Absolute Neut 14.0 X10 3/uL High 2.0-7.7 [facility] Comment on above: Performed By: #### L 100.0100, L700.8000, L500.2500 #### [facility] [address] [place], [address] Basophils/100 WBC (Bld) 0.3 % Normal 0-1 [facility] Comment on above: Performed By: #### L 100.0100, L700.8000, L500.2500 #### [facility] [address] [place], [address] Eosinophils/100 WBC (Bld) 0.0 % Normal 0-5 [facility] Comment on above: Performed By: #### L 100.0100, L700.8000, L500.2500 #### [facility] [address] [place], [address] Erythrocyte distribution width (RBC) [Ratio] 12.4 % Normal 11.6-14.6 [facility] Comment on above: Performed By: #### L 100.0100, L700.8000, L500.2500 #### [facility] [address] [place], [address] Hematocrit (Bld) [Volume fraction] 41.8 % Normal 37-47 [facility] Comment on above: Performed By: #### L 100.0100, L700.8000, L500.2500 #### [facility] [address] [place], [address] Hemoglobin (Bld) [Mass/Vol] 14.7 g/dL Normal 12.0-15.0 [facility] Comment on above: Performed By: #### L 100.0100, L700.8000, L500.2500 #### [facility] [address] [place], [address] IG% 0.400 Normal 0.0-0.9 [facility] Comment on above: Result Comment: IG% - Immature Granulocytes (promyelocytes, myelocytes and metamyelocytes) > 1% indicates that a LEFT SHIFT is Present. Performed By: #### L 100.0100, L700.8000, L500.2500 #### [facility] [address] [place], [address] Lymphocytes/100 WBC (Bld) 11.2 % Low 19-41 [facility] Comment on above: Performed By: #### L 100.0100, L700.8000, L500.2500 #### [facility] [address] [place], [address] MCH (RBC) [Entitic mass] 30.6 pg Normal 27.0-32.0 [facility] Comment on above: Performed By: #### L 100.0100, L700.8000, L500.2500 #### [facility] [address] [place], [address] MCHC (RBC) [Mass/Vol] 35.2 g/dL Normal 32-36 [facility] Comment on above: Performed By: #### L 100.0100, L700.8000, L500.2500 #### [facility] [address] [place], [address] MCV (RBC) [Entitic vol] 86.9 fL Normal 81-99 [facility] Comment on above: Performed By: #### L 100.0100, L700.8000, L500.2500 #### [facility] [address] [place], [address] Monocytes/100 WBC (Bld) 2.9 % Normal 0-10 [facility] Comment on above: Performed By: #### L 100.0100, L700.8000, L500.2500 #### [facility] [address] [place], [address] Neutrophils/100 WBC (Bld) 85.2 % High 47-70 [facility] Comment on above: Performed By: #### L 100.0100, L700.8000, L500.2500 #### [facility] [address] [place], [address] Nucleated RBC (Bld) [#/Vol] 0 10*3/uL Normal 0-5 [facility] Comment on above: Performed By: #### L 100.0100, L700.8000, L500.2500 #### [facility] [address] [place], [address] Platelet mean volume (Bld) [Entitic vol] 12.0 fL Normal 6.2-12.0 [facility] Comment on above: Performed By: #### L 100.0100, L700.8000, L500.2500 #### [facility] [address] [place], [address] Platelets (Bld) [#/Vol] 352 10*3/uL Normal 150-450 [facility] Comment on above: Performed By: #### L 100.0100, L700.8000, L500.2500 #### [facility] [address] [place], [address] RBC (Bld) [#/Vol] 4.81 10*6/uL Normal 4.2-5.4 [facility] Comment on above: Performed By: #### L 100.0100, L700.8000, L500.2500 #### [facility] [address] [place], [address] RDW SD 39.4 fl Normal 35.1-43.9 [facility] Comment on above: Performed By: #### L 100.0100, L700.8000, L500.2500 #### [facility] [address] [place], [address] WBC (Bld) [#/Vol] 16.4 10*3/uL High 4.4-11.0 [facility] Comment on above: Performed By: #### L 100.0100, L700.8000, L500.2500 #### [facility] [address] [place], [address] Carbon dioxide, total [Moles /volume] in Central venous bloodOrdered By: Elbert Watkins on 07-04-2025 CO2 [Moles/Vol] 21.7 mmol/L 21.0-32.0 [facility] Chloride assayOrdered By: Khoi Watkins on 07-04-2025 Chloride [Moles/Vol] 99 mmol/L 98-108 [facility] Emergency Department Summary on 07-04-2025 Emergency Department Summary [facility] Medical Records Department [address] [place] [address] Emergency Department Summary 07/04/25 MR#: [id number] Acct: [id number] Name: NOEMI CINTRON Rep #: [id number] : 2000 From: Elbert Watkins MD PCP: Care Physician,No Primary Status:REG ER Location: ED HPI HPI - GI History of Present Illness Chief Complaint: Nausea/Vomiting Informant: patient Narrative Narrative: Patient is a 25-year-old female with no significant PMHx presenting with persistent emesis and newly discovered . - Reports positive test on Thursday (3 days ago), due to missed period. - Since then, has experienced persistent emesis, worsening today to approximately every 10 minutes. - Emesis described as dark brownish; denies hematemesis or melena/BRBPR. - Associated with abdominal tightness, onset concurrent with emesis. No lower abd pain. - LMP: 05/19-05/21. - Denies vaginal bleeding, discharge, fever, syncope, diarrhea, or dysuria. - Primigravida. PFSH PFS Medical History no medical history no medical history Home Medications ???Medication ???Instructions ???Recorded ???Last Taken ???Type benzonatate 200 mg capsule 200 mg PO TID PRN cough #14 caps 0 05/31/25 Unknown Rx ondansetron 8 mg disintegrating 8 mg PO Q8H PRN nausea and 5 Unknown Rx tablet vomiting #20 tabs Allergy/AdvReac Type Severity Reaction Status Date / Time No Known Allergies Allergy Verified 07/04/25 18:19 Social History Smoking Status: Current every day smoker tobacco type: e-cigarettes ROS ROS ED Constitutional Constitutional ED: Denies chills or fever(s) Eyes Eyes: Denies change in vision or diplopia ENT ENT ED: Denies rhinorrhea or sore throat Cardiovascular Cardiovascular: Denies chest pain or palpitations Respiratory/Chest Respiratory/Chest: Denies cough or dyspnea Gastrointestinal Gastrointestinal: Reports abdominal pain, nausea and vomiting; Denies diarrhea, hematemesis, hematochezia or melena Genitourinary Genitourinary ED: Denies dysuria or hematuria Musculoskeletal Musculoskeletal: Denies back pain or neck pain Integumentary Denies abscess or rash Neurologic Neurologic: Denies headache(s), paresthesias or weakness Psychiatric Psychiatric: Denies suicidal thoughts EXAM Physical Exam Const Vital Signs: 07/04/25 18:17 Temperature 98.4 F Temperature Source Oral Pulse Rate 72 Respiratory Rate 16 Blood Pressure 109/73 Blood Pressure Mean 85 Pulse Ox 100 Oxygen Delivery Method Room Air Positive well nourished and well developed General Appearance ED: well developed and NAD HEENT Reports moist mucous membranes normocephalic and atraumatic Eyes PERRL and EOMs intact bilaterally Neck full ROM and supple Resp normal respiratory effort and clear to auscultation bilaterally Cardio regular rate, regular rhythm and no murmurs GI non-distended GI Narrative: Mild upper abdominal tenderness no guarding or rebound no lower abdominal tenderness. Auscultation: normoactive bowel sounds Palpation: soft Back/Spine no CVA tenderness General Back: other FROM Extremity normal to inspection General Extremety ED: Negative for edema, pulses abnormal or tenderness General Extremity: Negative for edema or pulses abnormal Neuro oriented x3, CN's II-XII intact bilaterally and no sensory deficits noted Sensorium / Orientation: awake and alert Motor Exam: strength 5/5 throughout Psych Mood Affect: anxious Skin no rashes or lesions noted and no wounds MDM MDM MDM Narrative Medical decision making narrative: This presentation is most consistent with hyperemesis gravidarum, although it is certainly possible that she also has a viral illness. My suspicion for an ectopic or an acute ovarian process is extremely low. We confirmed a positive test and performed a bedside ultrasound showing a gestational sac. Its diameter is consistent with a 6-week, 2-day , which aligns with her dates. I was not able to find heart tones; however, the pole, which is noted, is very small. We cannot entirely rule out the possibility of a missed AB, but at this time the patient has no lateralizing pelvic pain, tenderness suggestive of an acute process, or vaginal bleeding. Therefore, I do not believe she requires an emergent transvaginal ultrasound tonight, for which we would have to call ultrasound in. Her quantitative HCG is 47,000. She has mild leukocytosis at 16.4, which is not specific. The rest of her testing is unremarkable, and she has no urinary symptoms suggestive of cystitis. After IV fluids and Zofran, she is doing much better and tolerating oral fluids. She does not have (more content not included)... Normal [facility] Eosinophil percentageOrdered By: Elbert Watkins on 07-04-2025 Eosinophils/100 WBC (Bld) 0.0 % 0-5 [facility] Erythrocyte distribution wid th ratioOrdered By: Elbert Watkins on 07-04-2025 Erythrocyte distribution width (RBC) [Ratio] 12.4 % 11.6-14.6 [facility] Erythrocyte distribution wid th standard deviationOrdered By: Elbert Watkins on 07-04-2025 Erythrocyte distribution width (RBC) [Ratio] 39.4 fl 35.1-43.9 [facility] Glomerular filtration rate ( GFR) estimation/1.73 sq m using serum, plasma, or whole bOrdered By: Elbert Watkins on 07-04-2025 GFR/1.73 sq M.predicted among non-blacks MDRD (S/P/Bld) [Vol rate/Area] 110 mL/min/{1.73_m2} >60 [facility] Comment on above: mL/min/1.73m2 CKD-EP I Creatinine Equation (2020) Hematocrit Auto (Bld) [Volum e fraction]Ordered By: Elbert Watkins on 07-04-2025 Hematocrit (Bld) [Volume fraction] 41.8 % 37-47 [facility] Hemoglobin measurementOrdere d By: Elbert Watkins on 07-04-2025 Hemoglobin (Bld) [Mass/Vol] 14.7 g/dL 12.0-15.0 [facility] Immature granulocytes/100 WB C Auto (Bld)Ordered By: Elbert Watkins on 10-14-2025 Immature granulocytes/100 WBC (Bld) 0.400 % 0.0-0.9 [facility] Comment on above: IG% - Immature Granu locytes (promyelocytes, myelocytes and metamyelocytes) > 1% indicates that a LEFT SHIFT is Present. MCV (mean corpuscular volume ) determinationOrdered By: Elbert Watkins on 07-04-2025 MCV (RBC) [Entitic vol] 86.9 fL 81-99 [facility] Mean corpuscular hemoglobin (MCH) determinationOrdered By: Elbert Watkins on 07-04-2025 MCH (RBC) [Entitic mass] 30.6 pg 27.0-32.0 [facility] Mean corpuscular hemoglobin concentration (MCHC) determinationOrdered By: Elbert Watkins on 07-04-2025 MCHC (RBC) [Mass/Vol] 35.2 g/dL 32-36 [facility] Mean platelet volume determi nationOrdered By: Elbert Watkins on 07-04-2025 Platelet mean volume (Bld) [Entitic vol] 12.0 fL 6.2-12.0 [facility] Monocyte percentageOrdered B y: Elbetr Watkins on 07-04-2025 Monocytes/100 WBC (Bld) 2.9 % 0-10 [facility] Neutrophil percentageOrdered By: Elbert Watkins on 07-04-2025 Neutrophils/100 WBC (Bld) 85.2 % High 47-70 [facility] Nucleated red blood cell per centageOrdered By: Elbert Watkins on 07-04-2025 Nucleated RBC/100 WBC (Bld) [Ratio] 0 % 0-5 [facility] Platelet countOrdered By: Khoi Watkins on 07-04-2025 Platelets (Bld) [#/Vol] 352 10*3/uL 150-450 [facility] Potassium measurement (mass/ volume)Ordered By: Elbert Watkins on 07-04-2025 Potassium (Unsp spec) [Mass/Vol] 3.6 mmol/L 3.3-5.1 [facility] RBC Auto (Bld) [#/Vol]Ordere d By: Elbert Watkins on 07-04-2025 RBC (Bld) [#/Vol] 4.81 10*6/uL 4.2-5.4 [facility] Serum creatinine measurement (mass/volume)Ordered By: Elbert Watkins on 07-04-2025 Creatinine [Mass/Vol] 0.77 mg/dL 0.70-1.20 [facility] Serum glucose measurement (m ass/volume)Ordered By: Elbert Watkins on 07-04-2025 Glucose [Mass/Vol] 110 mg/dL High 70-99 [facility] Serum human chorionic gonado tropin detection for pregnancyOrdered By: Elbret Watkins on 07-04-2025 HCG ( test) [place]l [address] mIU/mL High <9 [facility] Comment on above: Gestational Age0.2-1 Week: 5-50 mIU/mL1-2 Weeks: 50-500 mIU/mL2-3 Weeks: 100-5000 mIU/mL3-4 Weeks: 500-10,000 mIU/mL4-5 Weeks:1000-50,000 mIU/mL5-6 Weeks: 10,000-100,000 mIU/mL6-8 Weeks: 15,000-200,000 mIU/mL2-3 Months:10,000-100,000 mIU/mL Serum or plasma calcium deloris urement (mass/volume)Ordered By: Elbert Watkins on 07-04-2025 Calcium [Mass/Vol] 10.5 mg/dL 7.6-11.0 [facility] Serum or plasma urea nitroge n measurement (mass/volume)Ordered By: Elbert Watkins on 07-04-2025 Urea nitrogen [Mass/Vol] 8 mg/dL 4-19 [facility] Sodium levelOrdered By: Garry Watkins on 07-04-2025 Sodium [Moles/Vol] 140 mmol/L 133-145 [facility] White blood cell (WBC) count Ordered By: Elbert Watkins on 07-04-2025 WBC (Bld) [#/Vol] 16.4 10*3/uL High 4.4-11.0 [facility] hCG Titer Quant., Serumon HCG QUANT. 18913 mIU/mL High <9 non-preg [facility] Comment on above: Order Comment: Result Comment: Gest ational Age 0.2-1 Week: 5-50 mIU/mL 1-2 Weeks: 50-500 mIU/mL 2-3 Weeks: 100-5000 mIU/mL 3-4 Weeks: 500-10,000 mIU/mL 4-5 Weeks:1000-50,000 mIU/mL 5-6 Weeks: 10,000-100,000 mIU/mL 6-8 Weeks: 15,000-200,000 mIU/mL 2-3 Months:10,000-100,000 mIU/mL Performed By: #### L 100.0100, L700.8000, L500.2500 #### [facility] [address] [place], [address] Emergency Department Summary on 05-31-2025 Emergency Department Summary [facility] Medical Records Department [address] [place] [address] Emergency Department Summary 05/31/25 MR#: [id number] Acct: [id number] Name: NOEMI CINTRON Rep #: [id number] : 2000 25 From: Alexy Prater DO PCP: Care Physician,No Primary Status:DEP ER Location: ED HPI History of Present Illness Chief Complaint: Cold Sx Detail of Chief Complaint: Cold symptoms Informant: patient Narrative Narrative: Patient presents with cold symptoms that started 3 days ago. She complains of bodyaches as well as cough and congestion. She thinks that she might have a sinus infection. There was 1 sick contact at work but was better after a day or 2. Patient coughing up some yellow phlegm at times. No fever. No sore throat. Denies headache. PFSH PFSH Home Medications ???Medication ???Instructions ???Recorded ???Last Taken ???Type benzonatate 200 mg capsule 200 mg PO TID PRN cough #14 caps 0 05/31/25 Unknown Rx Allergy/AdvReac Type Severity Reaction Status Date / Time No Known Allergies Allergy Verified 05/31/25 17:15 Social History Smoking Status: Never smoker ROS ROS ED Review of Systems ROS Unobtainable: other Constitutional Constitutional ED: Reports lethargy; Denies chills, fever(s), sweats or weight loss Eyes Eyes: Denies blurry vision, change in vision or diplopia ENT ENT ED: Denies rhinorrhea or sore throat Cardiovascular Cardiovascular: Denies chest pain, orthopnea or racing heartbeat Respiratory/Chest Respiratory/Chest: Reports cough; Denies dyspnea, dyspnea on exertion, orthopnea or sputum Gastrointestinal Gastrointestinal: Denies abdominal pain, diarrhea, nausea or vomiting Genitourinary Genitourinary ED: Denies dysuria, hematuria or urinary frequency Musculoskeletal Musculoskeletal: Reports myalgias; Denies arthralgias, back pain or neck pain Integumentary Denies abscess, Abrasions or rash Neurologic Neurologic: Denies headache(s) or weakness Psychiatric Psychiatric: Denies anxiety, depression or suicidal thoughts Endocrine Endocrinology: Denies polydipsia, polyphagia or polyuria Hematologic/Lymphat ic Hematologic/Lymphat ic: Denies easy bleeding, easy bruising or lymphadenopathy Allergic/Immunologi c Allergic/Immunologi c ED: Denies mouth swelling, tongue swelling or urticaria EXAM Physical Exam Const Vital Signs: 05/31/25 17:13 05/31/25 17:13 Temperature 98.2 F Temperature Source Oral Pulse Rate 85 Respiratory Rate 16 Respiratory Effort Normal Non-Labored Respiratory Pattern Normal Blood Pressure 114/81 H Blood Pressure Mean 92 Pulse Ox 99 Oxygen Delivery Method Room Air Positive well nourished and well developed General Appearance ED: well developed and NAD HEENT Reports TM's clear and moist mucous membranes HEENT Narrative: No tenderness over the sinuses maxillary or frontal. Patient does have some nasal congestion with slightly edematous turbinates but no significant purulent discharge. Pharynx not erythematous. Uvula midline. No trismus. No anterior or posterior cervical lymphadenopathy. normocephalic and atraumatic; Negative for trauma or tenderness Tympanic Membrane ED: Yes TM's clear Eyes PERRL and EOMs intact bilaterally General Eye ED: Negative for pale conjunctiva or scleral icterus Neck no lymphadenopathy, supple and no JVD General: Negative for tenderness Chest Wall inspection of chest normal and palpation of chest normal Chest: Negative for tenderness Resp normal respiratory effort and clear to auscultation bilaterally Effort and Inspection: Negative for respiratory distress or pain with movement Auscultation: Negative for rhonchi, wheezes or diminished lung sounds Cardio regular rate, regular rhythm, S1 normal heart sound, S2 normal heart sound and no murmurs Peripheral Pulses: pulses 2+ throughout GI normal to inspection, nondistended, normoactive bowel sounds, soft to palpation, non-tender, non- distended and no masses Back/Spine no CVA tenderness and no thoracic nor lumbar tenderness Extremity normal to inspection General Extremety ED: Negative for edema General Extremity: Negative for edema Neuro oriented x3, CN's II-XII intact bilaterally, no sensory deficits noted and gait normal Sensorium / Orientation: awake, alert, oriented to person, oriented to place and oriented to time Motor Exam: strength 5/5 throughout and strength abnormal Psych mental status grossly normal Skin no rashes or lesions noted and no wounds MDM MDM MDM Narrative Medical decision making narrative: Patient presents with URI symptoms. I do not feel she has a sinus infection. I do not feel antibiotics are indicated and I discussed this with her. I suspect likely a viral upper respiratory infection. Will treat her symptomaticall (more content not included)... Normal [facility] Vital Signs Date Time Vital Sign Value Performing Clinician Faci addis 07-04-2025 20:16-0400 Body temperature 98.4 [degF] Dr. Alexy Prater DO Work Phone: [facility] 07-04-2025 20:16-0400 Diastolic blood pressure 64 mm[Hg] Dr. Alexy Prater DO Work Phone: [facility] 07-04-2025 20:16-0400 Heart rate 82 /min Dr. Alexy Prater DO Work Phone: [facility] 07-04-2025 20:16-0400 Respiratory rate 16 /min Dr. Alexy Prater DO Work Phone: [facility] 07-04-2025 20:16-0400 SaO2% (BldA) [Mass fraction] 100 % Dr. Alexy Prater DO Work Phone: [facility] 07-04-2025 20:16-0400 Systolic blood pressure 103 mm[Hg] Dr. Alexy Prater DO Work Phone: [facility] 07-04-2025 18:17-0400 Body height 162.[address] Alexy Prater DO Work Phone: [facility] 07-04-2025 18:17-0400 Body mass index (BMI) [Ratio] 20.9 kg/m2 Dr. Alexy Prater DO Work Phone: 6(256)[phone] [place] [address] 07-04-2025 18:17-0400 Body weight 55.[address] Alexy Prater DO Work Phone: 1(051)[phone] [place] [address] 05-31-2025 19:06-0400 Body temperature 98.2 [degF] Dr. Alexy Prater DO Work Phone: 4(371)[phone] [address] 05-31-2025 19:06-0400 Diastolic blood pressure 81 mm[Hg] Dr. Alexy Prater DO Work Phone: 6(258)[phone] [address] 05-31-2025 19:06-0400 Heart rate 85 /min Dr. Alexy Prater DO Work Phone: 1(082)880-285262 [place] [address] 05-31-2025 19:06-0400 Respiratory rate 16 /min Dr. Alexy Prater DO Work Phone: 5(953)[phone] [place] [address] 05-31-2025 19:06-0400 SaO2% (BldA) [Mass fraction] 99 % Dr. Alexy Prater DO Work Phone: 7(380)646-661894 [address] 05-31-2025 19:06-0400 Systolic blood pressure 114 mm[Hg] Dr. Alexy Prater DO Work Phone: 7(013)[phone] [place] [address] 05-31-2025 17:13-0400 Body height 162.[address] Alexy Prater DO Work Phone: 1(978)[phone] [address] 05-31-2025 17:13-0400 Body mass index (BMI) [Ratio] 18.9 kg/m2 Dr. Alexy Prater DO Work Phone: 5(329)[phone] [place] [address] 05-31-2025 17:13-0400 Body weight 50.[address] Alexy Prater DO Work Phone: 0(425)[phone] [place] [address] Encounters Encounter Date Encounter Type Care Provider Facility Start: 07-22-2025 End: 07-23-2025 Emergency department patient visit Alexy Prater Facility:[facility] Start: 07-04-2025 End: 07-04-2025 Emergency department patient visit Dr. Elbert Watkins MD -Emergency Department Work Phone: Start: 05-31-2025 End: 05-31-2025 Emergency department patient visit Dr. Alexy Prater DO Work Phone: -Emergency Department Work Phone: Procedures Date Procedure Procedure Detail Performing Clinician Start: 07-04-[address] Alexy Parter DO Work Phone: Plan of Treatment Date Care Activity Detail Author Start: 07-04-2025 [facility] Start: 05-31-2025 [facility] Patient Education [facility] Work Phone: Payers Date Payer Category Payer Medicaid [id number] 2025 Medicaid [id number] 2025 Self-pay Unknown [id number] Unknown [id number] Unknown [id number] Social History Date Type Detail Facility Start: 05-31-2025 Tobacco smoking stat [facility] Never smoked tobacco (finding) [facility] Start: 2000 Sex Assigned At Female [facility] Start: 07-04-20[facility] Sex Female [facility] Mental Status Date Assessment Result Facility 05-31-2025 Cognitive function Level Of Cons ciousness Awake;Alert;Appropriate;Follow s Commands [facility] Work Phone: Discharge summary 07-04-2025 Note Date & Type Note Facility 07-04-2025 Discharge summary [facility] Discharge summary 07-04-2025 Note Date & Type Note Facility 07-04-2025 Discharge summary Note Date/Time July 04, 2025 8:14pm [facility] Medical Records Department [address] [place] [address] Emergency Department Summary 07/04/25 MR#: [id number] Acct: [id number] Name: NOEMI CINTRON Rep #:[id number] : 2000 25 From: Elbert Watkins MD PCP: Care Physician,No Primary Status :REG ER Location: ED HPI HPI - GI History of Present Illness Chief Complaint: Nausea/Vomiting Informant: patient Narrative Narrative: Patient is a 25-year-old female with no significant PMHx presenting with persistent emesis and newly discovered . - Reports positive test on Thursday (3 days ago), due to missed period. - Since then, has experienced persistent emesis, worsening today to approximately every 10 minutes. - Emesis described as dark brownish; denies hematemesis or melena/BRBPR. - Associated with abdominal tightness, onset concurrent with emesis. No lower abd pain. - LMP: 05/19-05/21. - Denies vaginal bleeding, discharge, fever, syncope, diarrhea, or dysuria. - Primigravida. PFSH PFSH Medical History no medical history no medical history Home Medications ?Medication ?Instructions ?Recorded ?Last Taken ?Type benzonatate 200 mg capsule 200 mg PO TID PRN cough #14 caps 05/31/25 Unknown Rx ondansetron 8 mg disintegrating 8 mg PO Q8H PRN nausea and 07/04/25 Unknown Rx tablet vomiting #20 tabs Allergy/AdvReac Type Severity Reaction Status Date / Time No Known Allergies Allergy Verified 07/04/25 18:19 Social History Smoking Status: Current every day smoker tobacco type: e-cigarettes ROS ROS ED Constitutional Constitutional ED: Denies chills or fever(s) Eyes Eyes: Denies change in vision or diplopia ENT ENT ED: Denies rhinorrhea or sore throat Cardiovascular Cardiovascular: Denies chest pain or palpitations Respiratory/Chest Respiratory/Chest: Denies cough or dyspnea Gastrointestinal Gastrointestinal: Reports abdominal pain, nausea and vomiting; Denies diarrhea, hematemesis, hematochezia or melena Genitourinary Genitourinary ED: Denies dysuria or hematuria Musculoskeletal Musculoskeletal: Denies back pain or neck pain Integumentary Denies abscess or rash Neurologic Neurologic: Denies headache(s), paresthesias or weakness Psychiatric Psychiatric: Denies suicidal thoughts EXAM Physical Exam Const Vital Signs: 07/04/25 18:17 Temperature 98.4 F Temperature Source Oral Pulse Rate 72 Respiratory Rate 16 Blood Pressure 109/73 Blood Pressure Mean 85 Pulse Ox 100 Oxygen Delivery Method Room Air Positive well nourished and well developed General Appearance ED: well developed and NAD HEENT Reports moist mucous membranes normocephalic and atraumatic Eyes PERRL and EOMs intact bilaterally Neck full ROM and supple Resp normal respiratory effort and clear to auscultation bilaterally Cardio regular rate, regular rhythm and no murmurs GI non-distended GI Narrative: Mild upper abdominal tenderness no guarding or rebound no lower abdominal tenderness. Auscultation: normoactive bowel sounds Palpation: soft Back/Spine no CVA tenderness General Back: other FROM Extremity normal to inspection General Extremety ED: Negative for edema, pulses abnormal or tenderness General Extremity: Negative for edema or pulses abnormal Neuro oriented x3, CN's II-XII intact bilaterally and no sensory deficits noted Sensorium / Orientation: awake and alert Motor Exam: strength 5/5 throughout Psych Mood & Affect: anxious Skin no rashes or lesions noted and no wounds MDM MDM MDM Narrative Medical decision making narrative: This presentation is most consistent with hyperemesis gravidarum, although it iscertainly possible that she also has a viral illness. My suspicion for an ectopic or an acute ovarian process is extremely low. We confirmed a positive test and performed a bedside ultrasound showing a gestationalsac. Its diameter is consistent with a 6-week, 2-day , which aligns with her dates. I was not able to find heart tones; however, the pole, which is noted, is very small. We cannot entirely rule out the possibilityof a missed AB, but at this time the patient has no lateralizing pelvic pain, tenderness suggestive of an acute process, or vaginal bleeding. Therefore, I do not believe she requires an emergent transvaginal ultrasound tonight, for which we would have to call ultrasound in. Her quantitative HCG is 47,000. She has mild leukocytosis at 16.4, which is not specific. The rest of her testing is unremarkable, and she has no urinary symptoms suggestive of cystitis. After IV fluids and Zofran, she is doing much better and tolerating oral fluids.She does not have any pain and reports feeling much improved. She is already taking gummies. I will refer her to the OB conservator artifacts, Dr. Gu, and prescribe Zofran as needed. Lab Data Attestation: I reviewed the patient's lab results. Labs: Laboratory Results - last 24 hr 07/04/25 18:30 WBC 16.4 H RBC 4.81 Hgb 14.7 Hct 41.8 MCV 86.9 MCH 30.6 MCHC 35.2 RDW Std Deviation 39.4 RDW Coeff of Oscar 12.4 Plt Count 352 MPV 12.0 Immature Gran % (Auto) 0.400 Neut % (Auto) 85.2 H Lymph % (Auto) 11.2 L [place] % (Auto) 2.9 Eos % (Auto) 0.0 Baso % (Auto) 0.3 Absolute Neuts (auto) 14.0 H Absolute Lymphs (auto) 1.84 Nucleated RBC % 0 Sodium 140 Potassium 3.6 Chloride 99 Carbon Dioxide 21.7 Anion Gap 19 H BUN 8 Creatinine 0.77 Estim Creat Clear Calc 96.45 Est GFR (MDRD) Non-Af 110 BUN/Creatinine Ratio 10.9 Glucose 110 H Calcium 10.5 HCG, Quant 07801 H Discharge Plan Triage Chief Complaint: Nausea/Vomiting ED Provider: Elbert Watkins Dx/Rx/DC Orders Clinical Impression: Vomiting affecting , antepartum, 6 weeks gestation of Instructions: : Weeks 6 to 10, Hyperemesis Gravidarum Prescriptions: New ondansetron 8 mg tablet,disintegrating 8 mg PO Q8H PRN (Reason: nausea and vomiting) Qty: 20 0RF No Action benzonatate 200 mg capsule 200 mg PO TID PRN (Reason: cough) Qty: 14 0RF Primary Care Provider: Care Physician,No Primary Referrals: Hamilton Gu MD [Med Staff - Active Staff, Obstetrics-Gynecology (OBGYN)] - As soon as possible Activity Restrictions/Additional Instructions: - Diagnosis: hyperemesis gravidarum (severe -related nausea and vomiting). - Sip small amounts of clear liquids throughout the day to stay hydrated. - Take ondansetron (Zofran) as needed for nausea; your prescription has been sent to the pharmacy. - Continue your vitamin gummies daily. - Follow up with OB conservator artifacts, Dr. Gu, for ongoing care. Print Language: Sinhala Disposition Disposition: Home, Self Care What to do if you have Problems For any increased pain, shortness of breath, bleeding, nausea or vomiting, chestpain, or any unexpected problems, contact your Primary Care Provider. Call [facility] ([phone]) or report to the closest Emergency Room. Call 911 if necessary. 07/04/252013 <Electronically signed by Elbert Watkins MD> Cosigner Signature (if applicable): CC: Dr. Hamilton Gu MD; No Primary Care Physician ~ Signed [facility] Work Phone: Evaluation note Note Date & Type Note Facility Evaluation note No assessment information availa ble [facility] Work Phone: Hospital Discharge instructions Note Date & Type Note Facility Hospital Discharge instructions Additional Instructions You may take Mucinex which is [id number] for congestion. [facility] Work Phone: Hospital Discharge instructions Note Date & Type Note Facility Hospital Discharge instructions Additional Instructions - Diagnosis: hyperemesis gravidarum (severe -related nausea and vomiting). - Sip small amounts of clear liquids throughout the day to stay hydrated. - Take ondansetron (Zofran) as needed for nausea; your prescription has been sent to the pharmacy. - Continue your vitamin gummies daily. - Follow up with OB conservator artifacts, Dr. Gu, for ongoing care. [facility] Work Phone: Reason for referral (narrative) Note Date & Type Note Facility Reason for referral (narrative) No reason for referral information available [facility] Work Phone: Chief Complaint and Reason for Visit Chief Complaint Admit Date May 31, 2025 5:12pm Chief Complaint Admit Date May 31, 2025 5:12pm n/v July 04, 2025 6 :16pm Advance Directives No Advanced Directives Records Found Advance Directive Response Recorded Date/ Time Do you have a Healthcare Power of [employer] W[employer] Etcher Stripper? No May 31, 2025 5:13pm Advance Directive Response Recorded Date/ Time Do you have a Healthcare Power of [employer]icon[employer] Wafers Etcher Stripper? No May 31, 2025 5:13pm Do you have a Healthcare Power of Semicon[employer] Wafers Etcher Stripper? No July 04, 2025 6:25pm Summary Purpose Family History No Family History Records Found Additional Source Comments Care Teams (unrecognized sec tion and content) Team Status: Active Member Role/Relationship Status Dates No Primary Care Physician Primary Care Provider Active Team Status: Inactive Member Role/Relationship Status Dates Dr. Alexy Prater DO Emergency Provider Active S tart: May 31, 2025 End: May 31, 2025 No Primary Care Physician Primary Care Provider Active Start: May 31, 2025 End: May 31, 2025 Team Status: Active Member Role/Relationship Status Dates No Primary Care Physician Primary care physician Activ e Team Status: Inactive Member Role/Relationship Status Dates Dr. Alexy Prater DO Attending physician Active Start: May 31, 2025 End: May 31, 2025 Dr. Alexy Prater DO Emergency Departmen t Physician Active Start: May 31, 2025 End: May 31, 2025 No Primary Care Physician Primary care physician Activ e Start: May 31, 2025 End: May 31, 2025 Team Status: Inactive Member Role/Relationship Status Dates No Primary Care Physician Primary care physician Activ e Start: July 04, 2025 End: July 04, 2025 Dr. Elbert Watkins MD Attending physician Active Start: July 04, 2025 End: July 04, 2025 Dr. Elbert Watkins MD Emergency Depart [facility] Physician Active Start: July 04, 2025 End: July 04, 2025 Goals (unrecognized section and content) Goals may be documented in a n alternate sectionGoals may be documented in an alternate section INFORMATION SOURCE (unrecogn ized section and content) DATE CREATED AUTHOR 08/02/2025 [facility] FOR RECORDS PERTAINING TO PATIENTS WHO ARE OR HAVE BEEN ENROLLED IN A CHEMICAL DEPENDENCY/SUBSTANCEABUSE PROGRAM, SOME INFORMATION MAY BE OMITTED. This clinical summary was aggregated from multiple sources. Caution should be exercised in using it in the provision of clinical care. This summary normalizes information from multiple sources, and as a consequence, information in this document may materially change the coding, format and clinical context of patient data. In addition, data may be omitted in some cases. CLINICAL DECISIONS SHOULD BE BASED ON THE PRIMARY CLINICAL RECORDS. [facility]. provides no warranty or guarantee of the accuracy or completeness of information in this document.
--- NOTE | 2025-08-31 20:16 | EX.ED.DYSGE1 ---
HPI History of Present Illness Chief Complaint: Nausea/Vomiting Narrative Narrative: Patient is a 25-year-old female presenting to the emergency department for nausea and vomiting for the past few days. She is , 14 weeks 6 days. States that she has been here twice for the same complaint. She states she ran out of Zofran few weeks ago. States that the last time she vomited was around 5 PM. Describes it as nonbloody nonbilious. Denies fever, chills, chest pain, shortness of breath, abdominal pain, dysuria or hematuria. She denies any vaginal bleeding or discharge. Patient has not seen PROMOTIONS REPRESENTATIVE yet for this . [facility] Medical History Home Medications ?Medication ?Instructions ?Recorded ?Last Taken ?Type benzonatate 200 mg capsule 200 mg PO TID PRN cough #14 caps 05/31/25 Unknown Rx ondansetron 8 mg disintegrating 8 mg PO Q8H PRN nausea and 07/04/25 Unknown Rx tablet vomiting #20 tabs ondansetron 4 mg disintegrating 8 mg (2 x 4 mg) PO Q8H PRN PRN 07/23/25 Unknown Rx tablet Nausea #20 tabs ondansetron 4 mg disintegrating 4 mg PO Q8H PRN PRN Nausea #20 tabs 08/31/25 Unknown Rx tablet Allergy/AdvReac Type Severity Reaction Status Date / Time No Known Allergies Allergy Verified 08/31/25 18:07 Social History household members: spouse current occupational status: employed Smoking Status: Former smoker ROS ROS ED ROS Narrative See HPI EXAM Physical Exam Narrative Exam Narrative: Vital signs: Reviewed General: Alert and oriented x 3. No acute distress. Well-appearing, nontoxic. HEENT: Head is normocephalic and atraumatic, sinuses nontender, pupils equal round and reactive. Nares are patent. Oropharynx and throat exams normal. Moist mucous membranes. Neck: Supple without lymphadenopathy nontender Cardiovascular: Regular rate and rhythm, no murmurs. No rubs or gallops. Normal S1 and S2 Respiratory: Clear to auscultation bilaterally. No wheezes, rales, rhonchi Abdominal: Soft and nontender. Normal bowel sounds. No guarding or rebound. Nonsurgical abdomen Extremities: No tenderness. No bruising. Normal range of motion. Normal sensation. Skin: No rash or redness. The rest of the physical exam is unremarkable Const Vital Signs: 08/31/25 18:03 08/31/25 20:57 08/31/25 22:00 Temperature 97.8 F Temperature Source Oral Pulse Rate 78 64 74 Respiratory Rate 16 14 14 Blood Pressure 93/57 L 116/71 117/74 Blood Pressure Mean 69 86 88 Pulse Ox 100 100 98 Oxygen Delivery Method Room Air Room Air Room Air 08/31/25 23:00 Temperature 97.2 F L Temperature Source Pulse Rate 62 Respiratory Rate 14 Blood Pressure 98/58 L Blood Pressure Mean 71 Pulse Ox 98 Oxygen Delivery Method MDM MDM MDM Narrative Medical decision making narrative: Patient is a 25-year-old female presenting to the emergency department for nausea and vomiting for the past few days. Patient was seen and examined. Vitals are stable. Patient resting in bed comfortably no acute distress. Fluid bolus and Zofran given for symptomatic control. Will obtain lab work including CBC, BMP and urinalysis to evaluate for any electrolyte imbalances. She has no abdominal pain on exam I do not think she needs any imaging of her abdomen. She has no vaginal bleeding or pelvic pain that would require pelvic ultrasound. She had a ultrasound done on 07/22 that verified an intrauterine . I do not have concern about ectopic for this reason. CBC with a mild nonspecific leukocytosis that is actually improved from her prior at 13.3. Mild anemia of 10.2. BMP with no significant abnormalities. No evidence of ZAHIDA. Urinalysis with no evidence of urinary tract infection. Evidence of some mild dehydration with elevated ketones. No evidence of hyperglycemia or DKA on BMP. Patient was reevaluated after fluids and Zofran and states she is feeling much better. She was able to drink about half a water bottle before discharge. I will prescribe her Zofran which has worked previously for her outpatient. Did recommend that she call her [employer] that she has plan to follow-up with on 12 September to see if she can follow-up any sooner. Patient discharged from the Emergency Department. I do not feel that the patient's evaluation reveals any acute reason for admission at this time. I instructed them to either follow-up with their primary care physician or promptly return to the Emergency Department for reevaluation should symptoms worsen or new symptoms develop. I explained what symptoms would indicate the need to return to the emergency department. Shared decision making was used. The patient voiced understanding of the treatment plan and is agreeable with it. Clinical impression Nausea and vomiting during History & Record Review Discussion w/independent historian: Patient and Significant other Additional record(s) reviewed:: Prior ED visit and Prior labs Lab Data Attestation: I reviewed the patient's lab results. Labs: Laboratory Results - last 24 hr 08/31/25 21:01 WBC 13.3 H RBC 3.27 L Hgb 10.2 L Hct 28.9 L MCV 88.4 MCH 31.2 MCHC 35.3 RDW Std Deviation 43.5 RDW Coeff of Oscar 13.4 Plt Count 270 MPV 11.7 Immature Gran % (Auto) 0.500 Neut % (Auto) 67.4 Lymph % (Auto) 26.4 [place] % (Auto) 4.6 Eos % (Auto) 0.9 Baso % (Auto) 0.2 Absolute Neuts (auto) 9.0 H Absolute Lymphs (auto) 3.52 Nucleated RBC % 0 Sodium 136 Potassium 3.3 Chloride 101 Carbon Dioxide 22.6 Anion Gap 12 BUN 5 Creatinine 0.43 L Estim Creat Clear Calc 172.70 Est GFR (MDRD) Non-Af 138 BUN/Creatinine Ratio 12.1 Glucose 101 H Calcium 8.8 Urine Color Yellow Urine Clarity Turbid Urine pH 7.0 Ur Specific [place] 1.015 Urine Protein 15 H Urine Glucose (UA) Normal Urine Ketones 150 A* Urine Occult Blood Negative Urine Nitrite Negative Urine Bilirubin Negative Urine Urobilinogen 1 H Ur Leukocyte Esterase Negative Urine RBC 0 SEEN Urine WBC 0 SEEN Ur Squamous Epith Cells 0-5 SEEN Amorphous Sediment 3+ Urine Bacteria 2+ Urine Mucus 0 SEEN Discharge Plan Triage Chief Complaint: Nausea/Vomiting ED Provider: Jodie Stephen Dx/Rx/DC Orders Clinical Impression: Nausea and vomiting during Instructions: ED Hyperemesis Gravidarum, ED Vomiting (Adult) Prescriptions: New ondansetron 4 mg tablet,disintegrating 4 mg PO Q8H PRN PRN (Reason: Nausea) Qty: 20 0RF No Action benzonatate 200 mg capsule 200 mg PO TID PRN (Reason: cough) Qty: 14 0RF ondansetron 8 mg tablet,disintegrating 8 mg PO Q8H PRN (Reason: nausea and vomiting) Qty: 20 0RF ondansetron 4 mg tablet,disintegrating 8 mg PO Q8H PRN PRN (Reason: Nausea) Qty: 20 0RF Primary Care Provider: Care Physician,No Primary Referrals: Molly Marks MD [Med Staff - [employer], Internal Medicine] - As soon as possible Care Physician,No Primary [Primary Care Provider, Medical] Activity Restrictions/Additional Instructions: Take the Zofran every 8 hours as needed for nausea and vomiting. Follow-up at your OB appointment on the . Your evaluation in the Emergency Department did not reveal any acute reason for admission. However, I want to emphasize that you may be early in the course of a disease process or illness even if it is not present. For this reason you should follow-up within 24 hours for reevaluation with either your primary care physician or if necessary back here in the Emergency Department. You should return to the Emergency Department immediately if your symptoms worsen or new symptoms develop. Print Language: Sami Disposition Disposition: Home, Self Care Discharge Date/Time: 08/31/25 23:03
[2025-08-31 20:57] VITALS: BP 116/71; PULSE 64; RESP 14; O2SAT 100
[2025-08-31] MEDS: 0.9% Normal Saline (1000mL) 1,000 ML 1000 ML IV (20:58)
[2025-08-31 21:10] LABS: Mucous, Urine 0 SEEN /hpf (<or=2+); Red Blood Cells-Urine 0 SEEN /hpf (0-5)
[2025-08-31 21:16] LABS: Color, Urine Yellow (Yellow); Glucose, Dipstick Normal (Normal); Leukocyte Esterase-Dipstick Negative /ul (Negative); Nitrite-Dipstick Negative (Negative); Occult Blood-Urine Negative /ul (Negative); Protein-Dipstick 15 mg/dl (Negative); Specific Gravity, Urine 1.015 (1.002-1.030); Urine Bilirubin Dipstick Negative (Negative)
[2025-08-31 21:22] LABS: Ketone-Dipstick 150 mg/dl (Negative)
[2025-08-31 21:26] LABS: Anion Gap 12 (5-15); BUN 5 mg/dL (4-19); BUN/Creat Ratio 12.1 RATIO (10-20); Calcium,Total 8.8 mg/dL (7.6-11.0); Carbon Dioxide 22.6 mmol/L (21.0-32.0); Chloride 101 mmol/L (98-108); Estimated Creatinine Clearance 172.70 ml/min (50-250); Glucose 101 mg/dL (70-99); Hematocrit 28.9 % (37-47); Hemoglobin 10.2 g/dL (12.0-15.0); Immature Granulocytes Count 0.060 X10^3/uL (0.0-0.0); Mean Corp Hgb Conc 35.3 g/dL (32-36); Mean Corpuscular Volume 88.4 fL (81-99); Mean Platelet Vol. 11.7 fl (6.2-12.0); NRBC Flagged by Analyzer 0 % (0-5); Platelet Count 270 K/mm3 (150-450); Potassium 3.3 mmol/L (3.3-5.1); RBC Distribution Width CV 13.4 % (11.6-14.6); RBC Distribution Width SD 43.5 fl (35.1-43.9); Red Blood Count 3.27 M/mm3 (4.2-5.4); White Blood Count 13.3 K/mm3 (4.4-11.0)
[2025-08-31 21:40] LABS: Squamous Epithelial Cells - UA 0-5 SEEN /hpf (5-10)
[2025-08-31 22:00] VITALS: BP 117/74; PULSE 74; RESP 14; O2SAT 98
[2025-08-31 23:00] VITALS: BP 98/58; PULSE 62; RESP 14; TEMP 36.2; O2SAT 98
== END 2025-08-31 23:03 | disposition home or self-care (01) ==
PROVIDERS: Emergency Provider Student in an Organized Health Care Education/Training Program; Visit Provider Student in an Organized Health Care Education/Training Program
DX: O21.9 Vomiting of pregnancy, unspecified (principal); O99.012 Anemia complicating pregnancy, second trimester; Z87.891 Personal history of nicotine dependence; E86.0 Dehydration; D64.9 Anemia, unspecified; O99.282 Endocrine, nutritional and metabolic diseases complicating pregnancy, second trimester; Z3A.14 14 weeks gestation of pregnancy
CPT/HCPCS: 80048; 81001; 85025; 96361; 96374; 99284; A4216; J2405